=== PATIENT | female | born 1950 | race Caucasian/White ===

== ENCOUNTER 2016-10-18 18:18 | Emergency (ER) | payer MEDICARE ==
[~2016-10-18] VITALS: Ht 152.4 cm; Wt 75.0 kg
[~2016-10-18 18:18] MED LIST: ASPI81TA11 PO; GLUCTAB PO; HYDR12.56 PO; LISI40TA PO; METO25 PO; PLAV75TA PO; PRAV20 PO
[2016-10-18 18:20] VITALS: BP 189/84; PULSE 70; RESP 17; TEMP 97.6; O2SAT 98
--- NOTE | 2016-10-18 19:21 | PD ---
Physical Exam Date Seen by Provider: Oct 18, 2016 Time Seen by Provider: 19:20 Narrative 65 yo female here for evaluation of left knee pain since today. Landed on cement and has had pain on the knee with swelling since. No other injuries. Pain worst with excertion and weight bearing. Pain is 7/10. Vitals are stable. Awaiting bed placement. Data Data Last Documented VS Vital Signs Date Time Temp Pulse Resp B/P Pulse Ox O2 Delivery O2 Flow Rate FiO2 10/18/16 18:20 97.6 70 17 189/84 98 MDM Medical Record Reviewed: Yes Supervised Visit with CHRISTOPHER: No Maykel Sotelo Oct 18, 2016 19:21
--- NOTE | 2016-10-18 19:33 | PD ---
HPI Chief Complaint: Pain: Acute or Chronic Time Seen by Provider: 19:30 Travel History International Travel<30 days: No Contact w/Intl Traveler<30days: No Traveled to known affect area: No History of Present Illness HPI Patient is a 65-year-old female presenting to emergency for evaluation of left knee pain. Patient had a mechanical fall at a grocery store at approximately 5 PM this evening. She states the floor was wet and she slipped landing on her left knee. She denies any other injury or trauma related to the fall. She had no dizziness, chest pain or shortness of breath prior to the fall. She reports the pain is a 3 out of 10 and states it is sore. She reports a small abrasion to the left knee, she has not taken any medications to alleviate pain. PFSH Past Medical History Cancer: No Cardiac Catheterization: Yes High Cholesterol: Yes Chest Pain: Yes Coronary Artery Disease: Yes Diabetes: Yes Gastrointestinal Disorders: No Glaucoma: No Hepatitis: No Hiatal Hernia: No Hypertension: Yes Respiratory: No Integumentary: No Thyroid Disease: No Past Surgical History Cardiac Surgery: Yes (stents) Thoracic Surgery: No Social History Alcohol Use: No Tobacco Use: No Allergies-Medications (Allergen,Severity, Reaction): Coded Allergies: No Known Allergies (Unverified , 10/18/16) Reported Meds & Prescriptions Reported Meds & Active Scripts Active Reported Pravastatin Sodium 20 Mg Tab 1 Tab PO DAILY Aspirin EC 81 mg (Aspirin) 81 Mg Tab 81 Mg PO DAILY Plavix (Clopidogrel Bisulfate) 75 Mg Tab 75 Mg PO DAILY Hctz (Hydrochlorothiazide) 12.5 Mg Cap 12.5 Mg PO DAILY Prinivil 40 mg (Lisinopril) 40 Mg Tab 1 Tab PO DAILY Metoprolol Tartrate 25 mg (Metoprolol Tartrate) 25 Mg Tab 25 Mg PO BID Metformin (Metformin HCl) 500 Mg Tab 1,000 Mg PO BIDPC Review of Systems Except as stated in HPI: all other systems reviewed are Neg Musculoskeletal: Positive: Arthralgias, Edema, Pain Physical Exam Narrative GENERAL: Well-nourished, well-developed patient. SKIN: Focused skin assessment warm/dry. HEAD: Normocephalic. EYES: No scleral icterus. No injection or drainage. NECK: Supple, trachea midline. No JVD or lymphadenopathy. CARDIOVASCULAR: Regular rate and rhythm without murmurs, gallops, or rubs. RESPIRATORY: Breath sounds equal bilaterally. No accessory muscle use. GASTROINTESTINAL: Abdomen soft, non-tender, nondistended. MUSCULOSKELETAL: No cyanosis, mild edema to the left anterior knee, superficial abrasion to left knee over patella. Full range of motion with flexion and extension. 2+ dorsalis pedis pulse, brisk less than 3 second capillary refill. Left patella mildly tender to palpation. BACK: Nontender without obvious deformity. No CVA tenderness. Data Data Last Documented VS Vital Signs Date Time Temp Pulse Resp B/P Pulse Ox O2 Delivery O2 Flow Rate FiO2 10/18/16 18:20 97.6 70 17 189/84 98 Orders Knee, Complete (4vws) (10/18/16 ) Ice/Cold Pack (10/18/16 19:24) [facility] Medical Decision Making Medical Screen Exam Complete: Yes Emergency Medical Condition: Yes Interpretation(s) Vital Signs Date Time Temp Pulse Resp B/P Pulse Ox O2 Delivery O2 Flow Rate FiO2 10/18/16 18:20 97.6 70 17 189/84 98 Differential Diagnosis Fracture versus contusion versus sprain versus strain versus other Narrative Course Patient is a 65-year-old female presenting with left knee pain after mechanical fall approximately 2 hours prior to arrival. Patient is neurovascularly intact. Imaging ordered and pending. Patient declined medication to help alleviate pain. Son is present with patient in room. Imaging is negative for any acute fracture. It does show possible faint chondrocalcinosis. Patient is encouraged to rest, ice, elevate extremity. She was encouraged to take ibuprofen or acetaminophen as needed and as directed for pain. She was encouraged to follow-up with her primary doctor return to emergency department for any new or worsening symptoms. Patient was encouraged to clean abrasion with soap and water. Patient verbalized understanding of instructions. Patient stable for discharge. Diagnosis Primary Impression: Knee contusion Qualified Code: S80.02XA - Contusion of left knee, initial encounter Referrals: Primary Care Physician Patient Instructions: Contusion in Adults (ED), General Instructions Additional Instructions: Rest, ice, elevate extremity Continue range of motion exercises Take [id number] acetaminophen or ibuprofen as needed and as directed for pain Return to emergency department for any new or worsening symptoms Med/Other Pt SpecificInfo: No Change to Meds Disposition: 01 DISCHARGE HOME Condition: Stable Ivania Santana Oct 18, 2016 19:33
--- NOTE | 2016-10-18 20:39 | RADRPT ---
EXAM DATE/TIME: 10/18/2016 20:03 [facility] COMPARISON: No previous studies available for comparison. INDICATIONS : Anterior left knee abrasions and pain after falling tonight. MEDICAL HISTORY : None. SURGICAL HISTORY : None. ENCOUNTER: Initial ACUITY: 1 day PAIN SCORE: 5/10 LOCATION: Left anterior knee. FINDINGS: No fracture is seen. The knee joint is normally aligned. There is faint calcification seen over the lateral joint space which could be from faint chondrocalcinosis. No effusion is seen. The bones appear osteopenic. A fracture is not seen. CONCLUSION: Possible faint chondrocalcinosis in the lateral joint space. An acute bony abnormali ty is not seen. Marty Ruano MD on October 18, 2016 at 20:35 Board Certified Radiologist. This report was verified electronically.
== END 2016-10-18 20:55 | disposition home or self-care (01) ==
LOC: NEPK 18:18
DX: S80.02XA Contusion of left knee, initial encounter (principal); S80.212A Abrasion, left knee, initial encounter; W01.0XXA Fall on same level from slipping, tripping and stumbling without subsequent striking against object, initial encounter; Y93.89 Activity, other specified; Y92.512 Supermarket, store or market as the place of occurrence of the external cause; E78.00 Pure hypercholesterolemia, unspecified; E11.9 Type 2 diabetes mellitus without complications; I10 Essential (primary) hypertension; I25.10 Atherosclerotic heart disease of native coronary artery without angina pectoris
CPT/HCPCS: 73564; 99283